=== PATIENT | female | born 1990 | race African-American/Black ===

== ENCOUNTER 2022-07-26 13:45 | Observation (INO) ==
[2022-07-26 14:05] VITALS: BMI 30.9
[2022-07-26] MEDS ORDERED: TORADOL 30 MG VIAL ONE (14:07)
[2022-07-26] MEDS ORDERED: ZOFRAN INJ 4 MG VIAL ONE (14:07)
[2022-07-26] MEDS ORDERED: NS 1,000 ML IV 1,000 ML ONE ×2 (14:08→15:24)
--- NOTE | 2022-07-26 14:08 | ED.ABDFE ---
HPI Time Seen Time Seen by Provider: 07/26/22 14:07 PCP Primary Care Physician: Dr. Castillo Complaint Doctors Chief Complaint Comments: LOW ABDOMINAL PAIN FOR 1 WEEK THAT BECAME MORE SEVERE ONE DAY AGO. VOMITIED ONE TINME YESTERDAY. HAS NOT HAD A CYCLE IN ABOUT A YEAR. Chief Complaint:: Patient states she is having lower abdominal cramping. States that pain comes and goes and has gotten worse. States she has been unable to co ntrol her bladder since yesterday. States she ate something yesterday and she vomited it back up. COVID-19 Coronavirus risk:travel/contact w/high risk person: No Has patient experienced Coronavirus symptoms: No Source History Provided: Patient Mode of arrival Mode of Arrival: Ambulatory Timing Onset of Chief Complaint: 07/25/22 PMH PMH Past Medical History: No Past Surgical History: Yes Surgical History: Other Past Surgical History Comment: Hernia Family History History of Family Medical Conditions: Yes Family Medical History: Hypertension Social History Does any household member use tobacco: No Alcohol Use: Occasionally Do you use any recreational Drugs:: No Lives Where: Home Travel Risk Coronavirus risk:travel/contact w/high risk person: No Has patient experienced Coronavirus symptoms: No Infectious screening Have you traveled outside the country in the last 6 months?: No Isolation: Standard ROS Review of Systems Constitutional: Other (LOW ABDOMINAL PAIN WITH CRAMPING ) Eyes: No Symptoms Reported ENTM: No Symptoms Reported Respiratoy: No Symptoms Reported Cardiovascular: No Symptoms Reported Gastrointestinal/Abdominal: Abdominal Pain Genitourinary: No Symptoms Reported Neurological: No Symptoms Reported Musculoskeletal: No Symptoms Reported Integumentary: No Symptoms Reported Hematologic/Lymphatic: No Symptoms Reported Endocrine: No Symptoms Reported Psychiatric: No Symptoms Reported PE Vital Signs Vitals: Temperature 98.8 F Pulse Rate 84 Respiratory Rate 20 Blood Pressure [Right Arm] 135/87 Blood Pressure 122/72 O2 Sat by Pulse Oximetry 100 General Limitations: No Limitations and Physical Limitation (INCREASED ABDOMINAL PAIN WITH CRAMPING. ) General Appearance: In Distress (MODERATE DISTRESS) Head Head Exam: Normal Inspection, Atraumatic and Normocephalic Eyes Eye exam: Normal Appearance, PERRL and EOMI ENT ENT Exam: Normal Exam and Normal Oropharynx Neck Neck Exam: Normal Inspection, Full ROM and Trachea Midline Chest Chest Inspection: Normal Inspection and Symmetric Chest Wall Rise Respiratory Respiratory Exam: Normal Lung Sounds Bilat Respiratory Exam: Bilateral: Clear to Auscultation Cardiovascular Cardiovascular Exam: Regular Rate and Normal Rhythm Abdominal Exam Abdominal Exam: Tenderness (LOWER QUADRANT, R>L) and Hyperactive Bowel Sounds Abdominal Tenderness: Suprapubic Rectal Rectal Exam: Deferred Extremeties Extremities Exam: Normal Inspection Neurologic Neurological Exam: Alert, Oriented X3 and CN II-XII Intact Skin Skin Exam: Warm, Dry and Intact MDM Differential Diagnosis Differential Diagnosis- Considerations may include:: -Threatened, PID, Urinary tract infection and Other (comments) (,TUBAL ) COURSE Treatment Treatment: THE PATIENT CONTINUED TO HAVE LOW ABDOMINAL PAIN, WAS INITIALLY GIVEN TORADOL 30MG IB AND ZOFRAN 4MG IV. THE PATIENN WAS FOUND TO HAVE A POSITIVE SERUM TEST. SHE CONTINUED TO HAVE ABDOMINAL PAIN AND WAS INITIALLY GIVEN MORPHINE 2MD IV FOR PAIN , THE PAIN EASED OFF A LITTLE AND WE ORDERDED AQUANTITATIVE HACG BUT BEFORE RESULTS WERE BCK THE PATIENT CONTINUED TO HAVE ABD PAIN AND EVENTIALLY STARTED HAVING VAGINAL BLEEDING WITH CONTRACTIONS , SHE WAS GIVEN ANOTHER 2MG OF MSO4 IV AND VAGINAL EXAM WAS DONE AND FETYS WAS NOTED AT THE VAGINAL OS, THE NURSE ,LUIS, HAD THEOTHER NURSES TO CLL DR PRADO WHO WAS ON FOR OB AND 1 SPOKE WITH HIM AT 1515 AND DESCRIBED WHAT WAS GOING ON AND HE STATED THAT THIS APPEARED TO AN IN PROGRESS FO CALL LABOR AND DELIVERY AND MOVE THE PATIENT OVER TO L AND D WHEN APPROPRIATE TO MOMITOR THE AND THE PATIENT FOR STABILITY. ROR Labs Reviewed Result Diagrams: 07/26/22 14:05 07/26/22 14:05 Laboratory: WBC 17.4 X10^3/uL (3.6-10.0) H 07/26/22 14:05 RBC 3.87 X10^6/uL (3.5-5.4) 07/26/22 14:05 Hgb 11.8 g/dL (12.0-16.0) L 07/26/22 14:05 Hct 34.8 % (36.0-47.0) L 07/26/22 14:05 MCV 90.0 fL (80.0-100.0) 07/26/22 14:05 MCH 30.5 pg (27.0-34.0) 07/26/22 14:05 MCHC 33.9 g/dL (33.0-35.0) 07/26/22 14:05 RDW 14.1 % (11.6-16.5) 07/26/22 14:05 Plt Count 236 X10^3/uL (150.0-450.0) 07/26/22 14:05 MPV 7.1 fL (7.4-11.0) L 07/26/22 14:05 Neut % (Auto) 84.8 % (42.0-75.0) H 07/26/22 14:05 Lymph % (Auto) 8.3 % (21.0-51.0) L 07/26/22 14:05 [place] % (Auto) 5.7 % (0.0-13.0) 07/26/22 14:05 Eos % (Auto) 1.0 % (0.9-2.9) 07/26/22 14:05 Baso % (Auto) 0.2 % (0.2-1.0) 07/26/22 14:05 Neut # (Auto) 14.8 x10^3/uL (2.2-4.8) H 07/26/22 14:05 Lymph # (Auto) 1.4 X10^3/uL (1.3-2.9) 07/26/22 14:05 [place] # (Auto) 1.0 x10^3/uL (0.3-0.8) H 07/26/22 14:05 Eos # (Auto) 0.2 x10^3/uL (0.0-0.2) 07/26/22 14:05 Baso # (Auto) 0.0 X10^3/uL (0.0-0.1) 07/26/22 14:05 Absolute Nucleated RBC 0.0 /100WBC 07/26/22 14:05 Sodium 138 mmol/L (136-145) 07/26/22 14:05 Corrected Sodium TNP 07/26/22 14:05 Potassium 3.5 mmol/L (3.5-5.1) 07/26/22 14:05 Chloride 104 mmol/L (98-107) 07/26/22 14:05 Carbon Dioxide 22.2 mmol/L (21-32) 07/26/22 14:05 BUN 4 mg/dL (7-18) L 07/26/22 14:05 Creatinine 0.66 mg/dL (0.55-1.02) 07/26/22 14:05 Est GFR (MDRD) Af Amer > 60 (>60) 07/26/22 14:05 Est GFR (MDRD) Non-Af > 60 (>60) 07/26/22 14:05 Glucose 85 mg/dL (65-99) 07/26/22 14:05 Calcium 8.0 mg/dL (8.5-10.1) L 07/26/22 14:05 Corrected Calcium 8.8 mg/dL (8.5-10.1) 07/26/22 14:05 Total Bilirubin 1.00 mg/dL (0.2-1.0) 07/26/22 14:05 AST 24 Units/L (15-37) 07/26/22 14:05 ALT 30 Units/L (12-78) 07/26/22 14:05 Alkaline Phosphatase 79 Units/L (46-116) 07/26/22 14:05 Total Protein 6.7 g/dL (6.4-8.2) 07/26/22 14:05 Albumin 3.0 g/dL (3.4-5.0) L 07/26/22 14:05 Globulin 3.7 g/dL (2.5-4.5) 07/26/22 14:05 Albumin/Globulin Ratio 0.8 Ratio (1.1-2.1) L 07/26/22 14:05 Amylase 38 Units/L (25-115) 07/26/22 14:05 Lipase 52 Units/L (73-393) L 07/26/22 14:05 HCG, Qual Positive >10 mIU/mL 07/26/22 14:05 Specimen Type Clean catch urine 07/26/22 13:52 Urine Color [place]od[place] (YELLOW) 07/26/22 13:52 Urine Appearance Hazy (CLEAR) 07/26/22 13:52 Urine pH 6.0 (5.0 - 8.0) 07/26/22 13:52 Ur Specific [place] 1.020 (1.000-1.030) 07/26/22 13:52 Urine Protein 2+ (NEGATIVE) 07/26/22 13:52 Urine Glucose (UA) Negative (NEGATIVE) 07/26/22 13:52 Urine Ketones 4+ (NEGATIVE) 07/26/22 13:52 Urine Blood 5+ (NEGATIVE) 07/26/22 13:52 Urine Nitrite Negative (NEGATIVE) 07/26/22 13:52 Urine Bilirubin Negative (NEGATIVE) 07/26/22 13:52 Urine Urobilinogen 2+ (NORMAL) 07/26/22 13:52 Ur Leukocyte Esterase 3+ (NEGATIVE) 07/26/22 13:52 Urine RBC 20-30 /HPF (0-3) A 07/26/22 13:52 Urine WBC 20-30 /HPF (0-5) A 07/26/22 13:52 Ur Squamous Epith Cells Few /HPF (NEGATIVE) 07/26/22 13:52 Urine Bacteria 1+ /HPF (NEGATIVE) 07/26/22 13:52 Urine Trichomonas Moderate /HPF (NEGATIVE) 07/26/22 13:52 Ur Culture Indicated? Yes/culture set up 07/26/22 13:52 Urine Opiates Screen Negative (NEG=<300) 07/26/22 13:52 Urine Methadone Screen Negative (NEG=<300) 07/26/22 13:52 Ur Barbiturates Screen Negative (NEG=<200) 07/26/22 13:52 Ur Phencyclidine Scrn Negative (NEG=<25) 07/26/22 13:52 Ur Amphetamines Screen Negative (NEG=<1000) 07/26/22 13:52 U Benzodiazepines Scrn Negative (NEG=<200) 07/26/22 13:52 Urine Cocaine Screen Negative (NEG=<300) 07/26/22 13:52 U Marijuana (THC) Screen Negative (NEG=<50) 07/26/22 13:52 Opioid Opioid Risk Tool Age (Eric box if 16-45): Yes History of Preadolescent Sexual Abuse: No Total: 1 Total Score Risk Category: Low Risk Copyright: Carlos CARO predicting aberrant behaviors Discharge Plan Discharge Plan Patient Disposition: 01 HOME, SELF-CARE Condition: Stable Prescriptions: No Action [facility] Concerns: Post Hospitalization: new medications and changes needed to prevent readmission or further decline. Pt educated and given instructions on all concerns. Plan of Treatment: Continue with present treatment and follow up plan. Pt is to keep follow up appointment as instructed and take medications as ordered. Follow ups/Referrals Follow ups/Referrals: Lucero Castillo [Primary Care Provider] - 3 days
[2022-07-26 14:13] LABS: BASOPHILS % (AUTO) 0.2 % (0.2-1.0); EOSINOPHILS # (AUTO) 0.2 x10^3/uL (0.0-0.2); HEMATOCRIT 34.8 % (36.0-47.0); HEMOGLOBIN 11.8 g/dL (12.0-16.0); LYMPHOCYTES # (AUTO) 1.4 X10^3/uL (1.3-2.9); LYMPHOCYTES % (AUTO) 8.3 % (21.0-51.0); MEAN CORPUSCULAR HEMOGLOBIN 30.5 pg (27.0-34.0); MEAN CORPUSCULAR HGB CONC 33.9 g/dL (33.0-35.0); MEAN PLATELET VOLUME 7.1 fL (7.4-11.0); MONOCYTES % (AUTO) 5.7 % (0.0-13.0); NEUTROPHILS # (AUTO) 14.8 x10^3/uL (2.2-4.8); NEUTROPHILS % (AUTO) 84.8 % (42.0-75.0); RED BLOOD COUNT 3.87 X10^6/uL (3.5-5.4); RED CELL DISTRIBUTION WIDTH 14.1 % (11.6-16.5); WHITE BLOOD COUNT 17.4 X10^3/uL (3.6-10.0)
[2022-07-26 14:13] LABS: BILIRUBIN,URINE NEGATIVE (NEGATIVE); BLOOD/HEMOGLOBIN,URINE 5+ (NEGATIVE); GLUCOSE, URINE NEGATIVE (NEGATIVE); KETONES,URINE 4+ (NEGATIVE); LEUKOCYTE ESTERASE ,URINE 3+ (NEGATIVE); NITRITES,URINE NEGATIVE (NEGATIVE); PROTEIN,URINE 2+ (NEGATIVE); UROBILINOGEN,URINE 2+ (NORMAL)
[2022-07-26] MEDS ORDERED: ZOFRAN INJ 4 MG VIAL IVP ONE (14:17)
[2022-07-26] MEDS ORDERED: NS 1,000 ML IV 1,000 ML IV ONE ×2 (14:17→15:24)
[2022-07-26] MEDS ORDERED: TORADOL 30 MG VIAL IVP ONE (14:17)
[2022-07-26 14:27] LABS: APPEARANCE,URINE HAZY (CLEAR); COLOR,URINE AMBER (YELLOW)
[2022-07-26 14:28] LABS: ALANINE AMINOTRANSFERASE 30 Units/L (12-78); ALKALINE PHOSPHATASE 79 Units/L (46-116); AMYLASE 38 Units/L (25-115); ASPARTATE AMINO TRANSFERASE 24 Units/L (15-37); BLOOD UREA NITROGEN 4 mg/dL (7-18); CARBON DIOXIDE 22.2 mmol/L (21-32); CHLORIDE 104 mmol/L (98-107); COR CA(FOR HYPOALB) 8.8 mg/dL (8.5-10.1); CREATININE 0.66 mg/dL (0.55-1.02); LIPASE 52 Units/L (73-393); SODIUM 138 mmol/L (136-145); TOTAL PROTEIN 6.7 g/dL (6.4-8.2); eGFR NON BLACK RACES > 60 (>60)
[2022-07-26 14:28] LABS: BACTERIA,URINE 1+ /HPF (NEGATIVE); RBC,URINE 20-30 /HPF (0-3); SQUAMOUS EPITHELIAL CELL,UR FEW /HPF (NEGATIVE); TRICHOMONAS,URINE MODERATE /HPF (NEGATIVE)
[2022-07-26 14:34] LABS: SERUM PREGNANCY TEST, QUAL POSITIVE >10 mIU/mL
[2022-07-26] MEDS ORDERED: MORPHINE SULFATE INJ 2 MG INJ IVP ONE ×2 (14:39→15:17)
[2022-07-26] MEDS ORDERED: MORPHINE SULFATE INJ 2 MG INJ ONE ×2 (14:40→15:17)
[2022-07-26] MEDS ORDERED: PITOCIN IVP ONE (15:50)
[2022-07-26] MEDS ORDERED: D5 1/2 NS 1,000 mL + PITOCIN 20 UNITS/L IV 20 UNITS/1,000 ML BAG IV PRN (15:55)
[2022-07-26] MEDS ORDERED: PITOCIN ONE (16:13)
[2022-07-26] MEDS ORDERED: D5 1/2 NS 1,000 mL + PITOCIN 20 UNITS/L IV 20 UNITS/1,000 ML BAG IV ONE (16:13)
[2022-07-26] MEDS: MOTRIN TAB 800 MG PO PRN (19:22)
[2022-07-26] MEDS ORDERED: MORPHINE SULFATE INJ 4 MG ONE (20:56)
[2022-07-26] MEDS: MORPHINE SULFATE INJ 4 MG IVP PRN (21:05)
[2022-07-27] MEDS: MOTRIN TAB 800 MG PO PRN (03:20)
[2022-07-27 05:47] LABS: BASOPHILS # (AUTO) 0.1 X10^3/uL (0.0-0.1); BASOPHILS % (AUTO) 0.5 % (0.2-1.0); EOSINOPHILS # (AUTO) 0.2 x10^3/uL (0.0-0.2); EOSINOPHILS % (AUTO) 2.2 % (0.9-2.9); HEMATOCRIT 26.1 % (36.0-47.0); LYMPHOCYTES # (AUTO) 2.3 X10^3/uL (1.3-2.9); LYMPHOCYTES % (AUTO) 21.7 % (21.0-51.0); MEAN CORPUSCULAR HEMOGLOBIN 31.7 pg (27.0-34.0); MEAN CORPUSCULAR HGB CONC 34.9 g/dL (33.0-35.0); MEAN CORPUSCULAR VOLUME 90.7 fL (80.0-100.0); MEAN PLATELET VOLUME 7.7 fL (7.4-11.0); MONOCYTES # (AUTO) 0.8 x10^3/uL (0.3-0.8); MONOCYTES % (AUTO) 7.7 % (0.0-13.0); NEUTROPHILS # (AUTO) 7.2 x10^3/uL (2.2-4.8); NEUTROPHILS % (AUTO) 67.9 % (42.0-75.0); RED BLOOD COUNT 2.88 X10^6/uL (3.5-5.4); RED CELL DISTRIBUTION WIDTH 14.5 % (11.6-16.5); WHITE BLOOD COUNT 10.7 X10^3/uL (3.6-10.0)
[2022-07-27 05:56] LABS: HEMOGLOBIN 9.1 g/dL (12.0-16.0)
[2022-07-27 06:18] LABS: ALANINE AMINOTRANSFERASE 19 Units/L (12-78); ALBUMIN 2.1 g/dL (3.4-5.0); ALKALINE PHOSPHATASE 57 Units/L (46-116); ASPARTATE AMINO TRANSFERASE 15 Units/L (15-37); BLOOD UREA NITROGEN 4 mg/dL (7-18); CALCIUM 6.7 mg/dL (8.5-10.1); CARBON DIOXIDE 21.4 mmol/L (21-32); CHLORIDE 108 mmol/L (98-107); COR CA(FOR HYPOALB) 8.2 mg/dL (8.5-10.1); CREATININE 0.56 mg/dL (0.55-1.02); SODIUM 139 mmol/L (136-145); TOTAL PROTEIN 5.1 g/dL (6.4-8.2); eGFR NON BLACK RACES > 60 (>60)
[2022-07-27] MEDS: MORPHINE SULFATE INJ 4 MG IVP PRN (08:39)
[2022-07-27 09:38] VITALS: BP 101/58
== END 2022-07-27 11:31 | disposition home or self-care (01) ==
LOC: MED/SURG 13:45 → ER 13:45 → MED/SURG 16:58
PROVIDERS: ADMIT Obstetrics & Gynecology Obstetrics; ATTEND Obstetrics & Gynecology Obstetrics
DX: O34.32 Maternal care for cervical incompetence, second trimester; Z3A.14 14 weeks gestation of pregnancy; O03.9 Complete or unspecified spontaneous abortion without complication

== ENCOUNTER 2022-11-27 11:29 | Observation (INO) ==
[2022-11-27] MEDS ORDERED: TORADOL 30 MG VIAL IVP ONE (11:55)
[2022-11-27] MEDS ORDERED: NS 1,000 ML IV 1,000 ML IV ONE ×2 (11:55→12:53)
--- NOTE | 2022-11-27 11:59 | ED.ABDFE ---
HPI Time Seen Time Seen by Provider: 11/27/22 11:49 PCP Primary Care Physician: EVE Hunt Doctors Chief Complaint Comments: 32 y/o female presents for evaluation. Started with lower abdominal pain 2 days ago, cramping. + worsened today. 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 + nausea, vomited 2 days ago. Pain wax/waning, located across the lower abdomen, does not radiate. Nothing makes it better, nothing makes it worse. Chief Complaint:: PAIN IN STOMACH OVER NIGHT AND BACK; INDICATES LOWER ABDOMINAL PAIN BILATERALLY AND LOWER BACK PAIN. DENIES N/V/D; C/O "SICK AND LIGHT HEADED LAST COUPLE DAYS"; DECREASED APPETITE; DENIES FOOD OR MEDICATION CHANGES Self Treatment fo Chief Complaint: MOTRIN THIS MORNING AROUND 0900 COVID-19 Coronavirus risk:travel/contact w/high risk person: No Has patient experienced Coronavirus symptoms: No Reviewed Nurses Notes Review: Yes Source History Provided: Patient Mode of arrival Mode of Arrival: Ambulatory Timing Onset of Chief Complaint: 11/26/22 PMH PMH Past Medical History: No Past Surgical History: Yes Surgical History: Other Past Surgical History Comment: HERNIA REPAIR Family History History of Family Medical Conditions: Yes Family Medical History: Hypertension Social History Does patient currently use any type of tobacco product: No Have you used tobacco products in the last 12 months: No Type of Tobacco Use: None Does any household member use tobacco: No Alcohol Use: Occasionally Do you use any recreational Drugs:: No Lives With: Family Lives Where: Home Travel Risk Coronavirus risk:travel/contact w/high risk person: No Has patient experienced Coronavirus symptoms: No Infectious screening In the last 2 months have you had wt loss of >10#?: NO Have you had fever, night sweats or hemotysis?: No Have you traveled outside the country in the last 6 months?: No Isolation: Standard ROS Review of Systems Constitutional: No Symptoms Reported Eyes: No Symptoms Reported ENTM: No Symptoms Reported Respiratoy: No Symptoms Reported Cardiovascular: No Symptoms Reported Gastrointestinal/Abdominal: See HPI Genitourinary: No Symptoms Reported Neurological: No Symptoms Reported Musculoskeletal: No Symptoms Reported Integumentary: No Symptoms Reported All Other Systems: Reviewed and Negative PE Vital Signs Vitals: Temperature 98.9 F Pulse Rate 64 Respiratory Rate 22 Blood Pressure [Right Arm] 101/58 Blood Pressure 112/73 O2 Sat by Pulse Oximetry 100 General General Appearance: Alert and In No Apparent Distress Eyes Eye exam: PERRL and EOMI ENT ENT Exam: Mucous Membranes Moist Chest Chest Inspection: Normal Inspection Respiratory Respiratory Exam: Normal Lung Sounds Bilat; negative Accessory Muscle Use or Respiratory Distress Cardiovascular Cardiovascular Exam: Regular Rate, Normal Rhythm and Normal Heart Sounds Abdominal Exam Abdominal Exam: Normal Bowel Sounds, Soft and Tenderness (RLQ > LLQ, no guarding or rebound. ) Back Back Exam: Normal Inspection; negative Tenderness, (R) CVA Tenderness or (L) CVA Tenderness Extremeties Extremities Exam: Normal Inspection and Full ROM; negative Edema Neurologic Neurological Exam: Alert, Oriented X3 and CN II-XII Intact; negative Motor Sensory Deficit Skin Skin Exam: Warm and Dry COURSE Treatment Treatment: Pt with lower abdominal cramping x 2 days, now with heavy vaginal bleeding. LMP 08/2022, h/o irregular menses. Is . W/u initiated. 1230 - + HCG ... labs otherwise acceptable. HIGHLY concerning for ectopic based on presentation. LMP around 08/30, about 8 weeks by dates. Added quantitative, US. Heads up to Dr Lord, carton forming machine tender for OB. Pt to remain NPO. 1316 - Dr Lord came and evaluated pt in US, is having a miscarriage. Will admit for observation, treat with methergine. ROR Labs Reviewed Laboratory Results Reviewed?: Yes Result Diagrams: 11/27/22 12:10 11/27/22 12:10 Laboratory: WBC 6.8 X10^3/uL (3.6-10.0) 11/27/22 12:10 RBC 3.86 X10^6/uL (3.5-5.4) 11/27/22 12:10 Hgb 11.6 g/dL (12.0-16.0) L 11/27/22 12:10 Hct 34.2 % (36.0-47.0) L 11/27/22 12:10 MCV 88.5 fL (80.0-100.0) 11/27/22 12:10 MCH 30.1 pg (27.0-34.0) 11/27/22 12:10 MCHC 34.0 g/dL (33.0-35.0) 11/27/22 12:10 RDW 14.9 % (11.6-16.5) 11/27/22 12:10 Plt Count 216 X10^3/uL (150.0-450.0) 11/27/22 12:10 MPV 7.1 fL (7.4-11.0) L 11/27/22 12:10 Neut % (Auto) 70.5 % (42.0-75.0) 11/27/22 12:10 Lymph % (Auto) 21.1 % (21.0-51.0) 11/27/22 12:10 [place] % (Auto) 6.9 % (0.0-13.0) 11/27/22 12:10 Eos % (Auto) 1.2 % (0.9-2.9) 11/27/22 12:10 Baso % (Auto) 0.3 % (0.2-1.0) 11/27/22 12:10 Neut # (Auto) 4.8 x10^3/uL (2.2-4.8) 11/27/22 12:10 Lymph # (Auto) 1.4 X10^3/uL (1.3-2.9) 11/27/22 12:10 [place] # (Auto) 0.5 x10^3/uL (0.3-0.8) 11/27/22 12:10 Eos # (Auto) 0.1 x10^3/uL (0.0-0.2) 11/27/22 12:10 Baso # (Auto) 0.0 X10^3/uL (0.0-0.1) 11/27/22 12:10 Absolute Nucleated RBC 0.0 /100WBC 11/27/22 12:10 Sodium 135 mmol/L (136-145) L 11/27/22 12:10 Corrected Sodium TNP 11/27/22 12:10 Potassium 3.7 mmol/L (3.5-5.1) 11/27/22 12:10 Chloride 101 mmol/L (98-107) 11/27/22 12:10 Carbon Dioxide 24.7 mmol/L (21-32) 11/27/22 12:10 BUN 5 mg/dL (7-18) L 11/27/22 12:10 Creatinine 0.77 mg/dL (0.55-1.02) 11/27/22 12:10 Est GFR (MDRD) Af Amer > 60 (>60) 11/27/22 12:10 Est GFR (MDRD) Non-Af > 60 (>60) 11/27/22 12:10 Glucose 96 mg/dL (65-99) 11/27/22 12:10 Calcium 7.9 mg/dL (8.5-10.1) L 11/27/22 12:10 Corrected Calcium TNP 11/27/22 12:10 Total Bilirubin 0.90 mg/dL (0.2-1.0) 11/27/22 12:10 AST 25 Units/L (15-37) 11/27/22 12:10 ALT 26 Units/L (12-78) 11/27/22 12:10 Alkaline Phosphatase 34 Units/L (46-116) L 11/27/22 12:10 Total Protein 6.9 g/dL (6.4-8.2) 11/27/22 12:10 Albumin 3.6 g/dL (3.4-5.0) 11/27/22 12:10 Globulin 3.3 g/dL (2.5-4.5) 11/27/22 12:10 Albumin/Globulin Ratio 1.1 Ratio (1.1-2.1) 11/27/22 12:10 Lipase 58 Units/L (73-393) L 11/27/22 12:10 HCG, Qual Positive >10 mIU/mL 11/27/22 12:10 HCG, Quant 38592 mIU/mL (0-6) H 11/27/22 12:10 Specimen Type Clean catch urine 11/27/22 13:45 Urine Color Red (YELLOW) 11/27/22 13:45 Urine Appearance Turbid (CLEAR) 11/27/22 13:45 Urine pH 5.0 (5.0 - 8.0) 11/27/22 13:45 Ur Specific [place] 1.015 (1.000-1.030) 11/27/22 13:45 Urine Protein 4+ (NEGATIVE) 11/27/22 13:45 Urine Glucose (UA) Negative (NEGATIVE) 11/27/22 13:45 Urine Ketones 3+ (NEGATIVE) 11/27/22 13:45 Urine Blood 5+ (NEGATIVE) 11/27/22 13:45 Urine Nitrite Negative (NEGATIVE) 11/27/22 13:45 Urine Bilirubin Negative (NEGATIVE) 11/27/22 13:45 Urine Urobilinogen 2+ (NORMAL) 11/27/22 13:45 Ur Leukocyte Esterase Negative (NEGATIVE) 11/27/22 13:45 Urine RBC Tntc /HPF (0-3) A 11/27/22 13:45 Urine WBC 0-2 /HPF (0-5) 11/27/22 13:45 Ur Squamous Epith Cells Negative /HPF (NEGATIVE) 11/27/22 13:45 Urine Bacteria Trace /HPF (NEGATIVE) 11/27/22 13:45 Ur Culture Indicated? No/not indicated 11/27/22 13:45 + HCG, + elevated quant XRAY XRAY Interpreted by: Radiologist X-ray Results: US -- 10 week , with inevitable miscarriage. Opioid Opioid Risk Tool Age (Eric box if 16-45): Yes History of Preadolescent Sexual Abuse: No Total: 1 Total Score Risk Category: Low Risk Copyright: Carlos CARO predicting aberrant behaviors Discharge Plan Diagnosis Discharge Problem: Incomplete miscarriage Discharge Plan Patient Disposition: ADMITTED INPATIENT Condition: Stable
[2022-11-27] MEDS ORDERED: NS 1,000 ML IV 1,000 ML ONE (12:02)
[2022-11-27] MEDS ORDERED: TORADOL 30 MG VIAL ONE (12:02)
[2022-11-27 12:25] LABS: BASOPHILS % (AUTO) 0.3 % (0.2-1.0); EOSINOPHILS # (AUTO) 0.1 x10^3/uL (0.0-0.2); EOSINOPHILS % (AUTO) 1.2 % (0.9-2.9); HEMATOCRIT 34.2 % (36.0-47.0); HEMOGLOBIN 11.6 g/dL (12.0-16.0); LYMPHOCYTES # (AUTO) 1.4 X10^3/uL (1.3-2.9); LYMPHOCYTES % (AUTO) 21.1 % (21.0-51.0); MEAN CORPUSCULAR HEMOGLOBIN 30.1 pg (27.0-34.0); MEAN CORPUSCULAR VOLUME 88.5 fL (80.0-100.0); MEAN PLATELET VOLUME 7.1 fL (7.4-11.0); MONOCYTES # (AUTO) 0.5 x10^3/uL (0.3-0.8); MONOCYTES % (AUTO) 6.9 % (0.0-13.0); NEUTROPHILS # (AUTO) 4.8 x10^3/uL (2.2-4.8); NEUTROPHILS % (AUTO) 70.5 % (42.0-75.0); PLATELET COUNT 216 X10^3/uL (150.0-450.0); RED BLOOD COUNT 3.86 X10^6/uL (3.5-5.4); RED CELL DISTRIBUTION WIDTH 14.9 % (11.6-16.5); WHITE BLOOD COUNT 6.8 X10^3/uL (3.6-10.0)
[2022-11-27 12:29] LABS: SERUM PREGNANCY TEST, QUAL POSITIVE >10 mIU/mL
[2022-11-27 12:34] LABS: ALANINE AMINOTRANSFERASE 26 Units/L (12-78); ALBUMIN 3.6 g/dL (3.4-5.0); ALKALINE PHOSPHATASE 34 Units/L (46-116); ASPARTATE AMINO TRANSFERASE 25 Units/L (15-37); BLOOD UREA NITROGEN 5 mg/dL (7-18); CALCIUM 7.9 mg/dL (8.5-10.1); CARBON DIOXIDE 24.7 mmol/L (21-32); CHLORIDE 101 mmol/L (98-107); CREATININE 0.77 mg/dL (0.55-1.02); GLUCOSE 96 mg/dL (65-99); LIPASE 58 Units/L (73-393); POTASSIUM 3.7 mmol/L (3.5-5.1); SODIUM 135 mmol/L (136-145); TOTAL PROTEIN 6.9 g/dL (6.4-8.2); eGFR NON BLACK RACES > 60 (>60)
[2022-11-27 14:01] LABS: BILIRUBIN,URINE NEGATIVE (NEGATIVE); BLOOD/HEMOGLOBIN,URINE 5+ (NEGATIVE); GLUCOSE, URINE NEGATIVE (NEGATIVE); KETONES,URINE 3+ (NEGATIVE); LEUKOCYTE ESTERASE ,URINE NEGATIVE (NEGATIVE); NITRITES,URINE NEGATIVE (NEGATIVE); PROTEIN,URINE 4+ (NEGATIVE); UROBILINOGEN,URINE 2+ (NORMAL)
[2022-11-27 14:03] LABS: APPEARANCE,URINE TURBID (CLEAR); COLOR,URINE RED (YELLOW)
[2022-11-27 14:16] LABS: BACTERIA,URINE TRACE /HPF (NEGATIVE); RBC,URINE TNTC /HPF (0-3); SQUAMOUS EPITHELIAL CELL,UR NEGATIVE /HPF (NEGATIVE)
--- NOTE | 2022-11-27 14:26 | US ---
HISTORY, bleeding. Last menstrual cycle 08/28/2022. Clinical age 13 weeks 0 days with an expected date of delivery on 06/04/2023.STUDYOB LESS THAN 14 WEEKSCOMPARISONNoneTECHNIQUEForty-four images made by the baseball inspector. [place] scale and color flow images of the pelvis were obtained. Two Cine clips were submitted.FINDINGSTrans abdominal: Maternal uterus is in the anteverted position. The uterus measured 10.5 cm long and about 6 cm in diameter.A single intrauterine gestational sac is present. But it is located in the endocervical canal consistent with inevitable miscarriage. A single fetus pole is identified. Cardiac motion was not seen under real-time imaging. No heart rate could be measured.- The shape of the gestational sac was elongated.- The crown-rump length measured 30.8 mm for an age of 10 weeks 0 days.- A yolk sac was not identified.- The endometrial cavity in the fundus and body was heterogenous suggesting endometrial hemorrhageBased on the measurements, the estimated gestational age is 10 weeks 0 days.- Left ovary was normal.- Right ovary was normal.- A corpus luteum cyst was not identified.- An adnexal mass was not identified.- Free fluid was not identified.IMPRESSION1. Findings consistent with an avid a ball miscarriage2. Fetus located in the endocervical canal with no measurable cardiac activityElectronically signed by: Mike Bronson (November 27, 2022 14:25:38)
[2022-11-27] MEDS ORDERED: ZOFRAN INJ 4 MG VIAL IVP PRN (14:35)
[2022-11-27 15:11] VITALS: BMI 29.0
[2022-11-27] MEDS: MORPHINE SULFATE INJ 4 MG IVP PRN ×2 (15:15→19:53)
[2022-11-27] MEDS: D5 1/2 NS 1,000 ML 1,000 ML IV SCH ×2 (15:33→23:18)
[2022-11-27] MEDS: METHERGINE PO SCH ×2 (17:41→21:20)
[2022-11-28] MEDS: MORPHINE SULFATE INJ 4 MG IVP PRN ×2 (02:10→06:04)
[2022-11-28] MEDS: D5 1/2 NS 1,000 ML 1,000 ML IV SCH (05:37)
[2022-11-28 06:16] LABS: BASOPHILS % (AUTO) 0.5 % (0.2-1.0); EOSINOPHILS # (AUTO) 0.1 x10^3/uL (0.0-0.2); EOSINOPHILS % (AUTO) 2.5 % (0.9-2.9); HEMATOCRIT 28.7 % (36.0-47.0); HEMOGLOBIN 9.8 g/dL (12.0-16.0); LYMPHOCYTES # (AUTO) 2.1 X10^3/uL (1.3-2.9); LYMPHOCYTES % (AUTO) 39.4 % (21.0-51.0); MEAN CORPUSCULAR HEMOGLOBIN 30.7 pg (27.0-34.0); MEAN CORPUSCULAR HGB CONC 34.3 g/dL (33.0-35.0); MEAN CORPUSCULAR VOLUME 89.5 fL (80.0-100.0); MEAN PLATELET VOLUME 7.5 fL (7.4-11.0); MONOCYTES # (AUTO) 0.4 x10^3/uL (0.3-0.8); MONOCYTES % (AUTO) 8.3 % (0.0-13.0); NEUTROPHILS # (AUTO) 2.6 x10^3/uL (2.2-4.8); NEUTROPHILS % (AUTO) 49.3 % (42.0-75.0); PLATELET COUNT 175 X10^3/uL (150.0-450.0); RED BLOOD COUNT 3.21 X10^6/uL (3.5-5.4); WHITE BLOOD COUNT 5.2 X10^3/uL (3.6-10.0)
[2022-11-28 06:51] LABS: ALANINE AMINOTRANSFERASE 21 Units/L (12-78); ALBUMIN 3.2 g/dL (3.4-5.0); ALKALINE PHOSPHATASE 29 Units/L (46-116); ASPARTATE AMINO TRANSFERASE 19 Units/L (15-37); BLOOD UREA NITROGEN 3 mg/dL (7-18); CALCIUM 7.3 mg/dL (8.5-10.1); CARBON DIOXIDE 24.7 mmol/L (21-32); CHLORIDE 102 mmol/L (98-107); COR CA(FOR HYPOALB) 7.9 mg/dL (8.5-10.1); CREATININE 0.67 mg/dL (0.55-1.02); GLUCOSE 99 mg/dL (65-99); POTASSIUM 3.3 mmol/L (3.5-5.1); SODIUM 136 mmol/L (136-145); TOTAL PROTEIN 6.2 g/dL (6.4-8.2); eGFR NON BLACK RACES > 60 (>60)
[2022-11-28] MEDS: METHERGINE PO SCH ×2 (08:34→12:30)
[2022-11-28 08:55] VITALS: PULSE 53
[2022-11-28] MEDS ORDERED: MOTRIN TAB 800 MG PO PRN (10:00)
[2022-11-28] MEDS ORDERED: NS 100 ML IV 100 ML with VENOFER 400 MG IV ONE ×2 (10:04)
[2022-11-28 12:23] VITALS: BP 108/62; TEMP 98.2; O2SAT 100
== END 2022-11-28 13:30 | disposition home or self-care (01) ==
LOC: MED/SURG 11:29 → ER 11:29 → MED/SURG 14:24
PROVIDERS: ADMIT Obstetrics & Gynecology Obstetrics; ATTEND Obstetrics & Gynecology Obstetrics
DX: O03.4 Incomplete spontaneous abortion without complication

== ENCOUNTER 2025-01-03 19:37 | Inpatient (IN) ==
--- NOTE | 2025-01-03 20:57 | ED.ABDFE ---
HPI Time Seen Time Seen by Provider: 01/03/25 20:56 PCP Primary Care Physician: CHER Complaint Chief Complaint:: Patient brought in er via WC with complaints of abdominal pain, N/V, and diarrhea since yesterday. Pt states she has a HX of pancreatitis with normal scans. pt states she is being followed by Dr. Oliver. COVID-19 Coronavirus risk:travel/contact w/high risk person: No Has patient experienced Coronavirus symptoms: No Source History Provided: Patient Mode of arrival Mode of Arrival: Ambulatory Timing Onset of Chief Complaint: 01/02/25 PMH PMH Past Medical History: Yes Past Medical History: GERD, Hypertension and PUD Past Surgical History: Yes Surgical History: Other Past Surgical History Comment: Umbilical Hernia repair Family History History of Family Medical Conditions: Yes Family Medical History: Diabetes Mellitus and Hypertension Social History Does patient currently use any type of tobacco product: No Have you used tobacco products in the last 12 months: No Type of Tobacco Use: None Does any household member use tobacco: No Alcohol Use: None Do you use any recreational Drugs:: No Lives With: Family Lives Where: Home Travel Risk Coronavirus risk:travel/contact w/high risk person: No Has patient experienced Coronavirus symptoms: No Infectious screening Have you traveled outside the country in the last 6 months?: No Isolation: Standard PE Vital Signs Vitals: Vital Signs Temperature 98.1 F Pulse Rate 85 Respiratory Rate 18 Respiratory Rate 18 Respiratory Rate 18 Respiratory Rate 18 Blood Pressure 135/93 O2 Sat by Pulse Oximetry 98 ROR Labs Reviewed 01/07/25 05:45 01/07/25 05:45 Laboratory: WBC 10.1 X10^3/uL (3.6-10.0) H 01/03/25 21: RBC 4.01 X10^6/uL (3.5-5.4) 01/03/25 21: Hgb 14.2 g/dL (12.0-16.0) 01/03/25 21: Hct 41.7 % (36.0-47.0) 01/03/25 21: MCV 104.1 fL (80.0-100.0) H 01/03/25 21: MCH 35.5 pg (27.0-34.0) H 01/03/25 21: MCHC 34.1 g/dL (33.0-35.0) 01/03/25: RDW 15.9 % (11.6-16.5) 01/03/25: Plt Count 237 X10^3/uL (150.0-450.0) 01/03/25: MPV 7.5 fL (7.4-11.0) 01/03/25: Neut % (Auto) 75.9 % (42.0-75.0) H 01/03/25: Lymph % (Auto) 13.2 % (21.0-51.0) L 01/03/25: [place] % (Auto) 10.5 % (0.0-13.0) 01/03/25: Eos % (Auto) 0.1 % (0.9-2.9) L 01/03/25: Baso % (Auto) 0.3 % (0.2-1.0) 01/03/25: Neut # (Auto) 7.7 x10^3/uL (2.2-4.8) H 01/03/25: Lymph # (Auto) 1.3 X10^3/uL (1.3-2.9) 01/03/25: [place] # (Auto) 1.1 x10^3/uL (0.3-0.8) H 01/03/25: Eos # (Auto) 0.0 x10^3/uL (0.0-0.2) 01/03/25: Baso # (Auto) 0.0 X10^3/uL (0.0-0.1) 01/03/25: Absolute Nucleated RBC 0.1 /100WBC 01/03/25: Sodium 141 mmol/L (136-145) 01/03/25: Corrected Sodium TNP 01/03/25: Potassium 3.1 mmol/L (3.5-5.1) L 01/03/25: Chloride 103 mmol/L (98-107) 01/03/25: Carbon Dioxide 25.6 mmol/L (21-32) 01/03/25: BUN 5 mg/dL (7-18) L 01/03/25 21: Creatinine 0.79 mg/dL (0.55-1.02) 01/03/25 21:25 Est GFR (MDRD) Af Amer > 60 (>60) 01/03/25: Est GFR (MDRD) Non-Af > 60 (>60) 01/03/25 21: Glucose 109 mg/dL (65-99) H 01/03/25 21: Calcium 8.3 mg/dL (8.5-10.1) L 01/03/25: Corrected Calcium TNP 01/03/25: Total Bilirubin 1.30 mg/dL (0.2-1.0) H 01/03/25: AST 84 Units/L (15-37) H 01/03/25: ALT 76 Units/L (12-78) 01/03/25: Alkaline Phosphatase 88 Units/L (46-116) 01/03/25: Total Protein 8.8 g/dL (6.4-8.2) H 01/03/25: Albumin 4.1 g/dL (3.4-5.0) 01/03/25: Globulin 4.7 g/dL (2.5-4.5) H 01/03/25: Albumin/Globulin Ratio 0.9 Ratio (1.1-2.1) L 01/03/25: Amylase 42 Units/L (25-115) 01/03/25 21: Lipase 44 Units/L (16-77) 01/03/25 21:25 Specimen Type Clean catch urine 01/03/25 20:52 Urine Color Dark yellow (YELLOW) 01/03/25 20:52 Urine Appearance Clear (CLEAR) 01/03/25 20:52 Urine pH 6.0 (5.0 - 8.0) 01/03/25 20:52 Ur Specific [place] 1.020 (1.000-1.030) 01/03/25 20:52 Urine Protein 2+ (NEGATIVE) 01/03/25 20:52 Urine Glucose (UA) Negative (NEGATIVE) 01/03/25 20:52 Urine Ketones 1+ (NEGATIVE) 01/03/25 20:52 Urine Blood 1+ (NEGATIVE) 01/03/25 20:52 Urine Nitrite Negative (NEGATIVE) 01/03/25 20:52 Urine Bilirubin Negative (NEGATIVE) 01/03/25 20:52 Urine Urobilinogen Normal (NORMAL) 01/03/25 20:52 Ur Leukocyte Esterase Negative (NEGATIVE) 01/03/25 20:52 Urine RBC 0-2 /HPF (0-3) 01/03/25 20:52 Urine WBC 0-2 /HPF (0-5) 01/03/25 20:52 Ur Squamous Epith Cells Moderate /HPF (NEGATIVE) 01/03/25 20:52 Urine Bacteria Trace /HPF (NEGATIVE) 01/03/25 20:52 Urine Mucus Many /HPF (NEGATIVE) 01/03/25 20:52 Ur Culture Indicated? No/not indicated 01/03/25 20:52 Opioid Opioid Risk Tool Age (Eric box if 16-45): Yes History of Preadolescent Sexual Abuse: No Total: 1 Total Score Risk Category: Low Risk Copyright: Carlos CARO predicting aberrant behaviors Discharge Plan Discharge Plan Patient Disposition: 09 ADMITTED INPATIENT Condition: Stable
[2025-01-03 21:03] LABS: BILIRUBIN,URINE NEGATIVE (NEGATIVE); BLOOD/HEMOGLOBIN,URINE 1+ (NEGATIVE); GLUCOSE, URINE NEGATIVE (NEGATIVE); KETONES,URINE 1+ (NEGATIVE); LEUKOCYTE ESTERASE ,URINE NEGATIVE (NEGATIVE); NITRITES,URINE NEGATIVE (NEGATIVE); PROTEIN,URINE 2+ (NEGATIVE); UROBILINOGEN,URINE NORMAL (NORMAL)
[2025-01-03 21:11] LABS: APPEARANCE,URINE CLEAR (CLEAR); COLOR,URINE DARK YELLOW (YELLOW)
[2025-01-03 21:12] LABS: BACTERIA,URINE TRACE /HPF (NEGATIVE); RBC,URINE 0-2 /HPF (0-3); SQUAMOUS EPITHELIAL CELL,UR MODERATE /HPF (NEGATIVE)
[2025-01-03] MEDS: DEMEROL INJ IM ONE ×2 (21:21→21:41)
[2025-01-03] MEDS ORDERED: DEMEROL INJ ONE (21:24)
[2025-01-03] MEDS: ZOFRAN INJ 4 MG VIAL IM ONE (21:33)
[2025-01-03 21:36] LABS: HEMATOCRIT 41.7 % (36.0-47.0); HEMOGLOBIN 14.2 g/dL (12.0-16.0); MEAN CORPUSCULAR HEMOGLOBIN 35.5 pg (27.0-34.0); MEAN CORPUSCULAR HGB CONC 34.1 g/dL (33.0-35.0)
[2025-01-03 21:42] LABS: BASOPHILS % (AUTO) 0.3 % (0.2-1.0); EOSINOPHILS % (AUTO) 0.1 % (0.9-2.9); LYMPHOCYTES # (AUTO) 1.3 X10^3/uL (1.3-2.9); LYMPHOCYTES % (AUTO) 13.2 % (21.0-51.0); MEAN CORPUSCULAR VOLUME 104.1 fL (80.0-100.0); MEAN PLATELET VOLUME 7.5 fL (7.4-11.0); MONOCYTES # (AUTO) 1.1 x10^3/uL (0.3-0.8); MONOCYTES % (AUTO) 10.5 % (0.0-13.0); NEUTROPHILS # (AUTO) 7.7 x10^3/uL (2.2-4.8); NEUTROPHILS % (AUTO) 75.9 % (42.0-75.0); PLATELET COUNT 237 X10^3/uL (150.0-450.0); RED BLOOD COUNT 4.01 X10^6/uL (3.5-5.4); RED CELL DISTRIBUTION WIDTH 15.9 % (11.6-16.5); WHITE BLOOD COUNT 10.1 X10^3/uL (3.6-10.0)
[2025-01-03 21:46] LABS: ALANINE AMINOTRANSFERASE 76 Units/L (12-78); ALBUMIN 4.1 g/dL (3.4-5.0); ALKALINE PHOSPHATASE 88 Units/L (46-116); AMYLASE 42 Units/L (25-115); ASPARTATE AMINO TRANSFERASE 84 Units/L (15-37); BLOOD UREA NITROGEN 5 mg/dL (7-18); CALCIUM 8.3 mg/dL (8.5-10.1); CARBON DIOXIDE 25.6 mmol/L (21-32); CHLORIDE 103 mmol/L (98-107); CREATININE 0.79 mg/dL (0.55-1.02); GLUCOSE 109 mg/dL (65-99); LIPASE 44 Units/L (16-77); POTASSIUM 3.1 mmol/L (3.5-5.1); SODIUM 141 mmol/L (136-145); TOTAL PROTEIN 8.8 g/dL (6.4-8.2); eGFR NON BLACK RACES > 60 (>60)
--- NOTE | 2025-01-03 22:11 | CT ---
EXAM: CT ABDOMEN AND PELVIS WITHOUT INTRAVENOUS CONTRAST HISTORY: Pain. Nausea. Vomiting. Diarrhea. History of pancreatitis. TECHNIQUE: Spiral axial CT images are obtained through the abdomen and pelvis without the administration of intravenous contrast. Additional coronal and sagittal reformatted images are reconstructed. COMPARISON: None available. FINDINGS: PANCREAS: There is evidence for acute pancreatitis marked by pancreatic enlargement and peripancreatic streaky inflammatory change. No evidence for pancreatic pseudocyst formation is seen. BILIARY SYSTEM: There is thickened appearance of the gallbladder wall with gallbladder dilatation/elongation and pericholecystic stranding suspicious for acute cholecystitis in the appropriate clinical setting. Axial image 25-52; coronal image 13-26. Consider follow-up evaluation with HIDA scan to confirm cystic duct obstruction and acute cholecystitis as clinically warranted. GASTROINTESTINAL TRACT: There is no evidence for bowel herniation, bowel obstruction, colitis or diverticulitis. A normal-appearing appendix is seen. GENITOURINARY SYSTEM: The kidneys are unremarkable. There is no ureteral calculus or stigmata of obstructive uropathy. The urinary bladder is grossly unremarkable for a non-dedicated exam. REPRODUCTIVE SYSTEM: The uterus and adnexa appear grossly unremarkable for a CT scan. Consider follow-up dedicated imaging as clinically warranted. CT ABDOMEN: Elongation of the right lobe of the liver (up to 20.5 cm CC) in keeping with hepatomegaly versus Toño's lobe (anatomical variant). The spleen, adrenal glands, gallbladder, aorta, and inferior vena cava are within normal limits for a noncontrast CT scan. There is no intra-abdominal or ret roperitoneal lymphadenopathy, free fluid, or free air seen. No abdominal herniation is noted. CT PELVIS: No pelvic sidewall or inguinal lymphadenopathy is seen. No inguinal herniation is noted. No free fluid or free air is seen. BONES AND JOINTS: The visualized bony structures are within normal limits. LUNG BASES: The lung bases are clear. IMPRESSION: 1. Evidence for acute pancreatitis marked by pancreatic enlargement and peripancreatic streaky inflammatory change. 2. Thickened appearance of the gallbladder wall with gallbladder dilatation/elongation and pericholecystic stranding suspicious for acute cholecystitis in the appropriate clinical setting. Axial image 25-52; coronal image 13-26. Consider follow-up evaluation with HIDA scan to confirm cystic duct obstruction and acute cholecystitis as clinically warranted. 3. No evidence for ureteral stones or obstructive uropathy. 4. No evidence for acute appendicitis, bowel herniation/obstruction, colitis or diverticulitis seen. 5. Elongation of the right lobe of the liver (up to 20.5 cm CC) in keeping with hepatomegaly versus Toño's lobe (anatomical variant). 6. No free fluid, free air, mass lesions, or lymphadenopathy seen. THIS IS AN ELECTRONICALLY VERIFIED FINAL REPORT 01/03/2025 10:08 PM - Electronically signed by Donald Cabrera MD
[2025-01-03] MEDS: K-DUR TAB 20 MEQ PO ONE (22:43)
[2025-01-03] MEDS ORDERED: NS 250 ML IV 25 ML IV PRN (23:27)
[2025-01-03] MEDS: ZOSYN VIAL 3.375 GRAMS 3.375 G in NS 100 ML IV 100 ML IV ONE (23:34)
[2025-01-03] MEDS: ZOFRAN INJ 4 MG VIAL IVP ONE (23:43)
[2025-01-03] MEDS: DILAUDID INJ IVP ONE (23:43)
[2025-01-04] MEDS: MORPHINE SULFATE INJ 2 MG INJ IVP PRN ×2 (03:16→08:36)
[2025-01-04] MEDS: ZOFRAN INJ 4 MG VIAL IVP PRN (03:43)
[2025-01-04] MEDS: ZOSYN VIAL 3.375 GRAMS 3.375 G in NS 100 ML IV 100 ML IV SCH (05:41)
[2025-01-04 05:54] LABS: BASOPHILS % (AUTO) 0.2 % (0.2-1.0); EOSINOPHILS % (AUTO) 0.5 % (0.9-2.9); HEMATOCRIT 39.2 % (36.0-47.0); HEMOGLOBIN 13.6 g/dL (12.0-16.0); LYMPHOCYTES # (AUTO) 1.7 X10^3/uL (1.3-2.9); LYMPHOCYTES % (AUTO) 19.7 % (21.0-51.0); MEAN CORPUSCULAR HEMOGLOBIN 36.1 pg (27.0-34.0); MEAN CORPUSCULAR HGB CONC 34.8 g/dL (33.0-35.0); MEAN CORPUSCULAR VOLUME 103.8 fL (80.0-100.0); MEAN PLATELET VOLUME 7.5 fL (7.4-11.0); MONOCYTES # (AUTO) 0.8 x10^3/uL (0.3-0.8); NEUTROPHILS # (AUTO) 5.9 x10^3/uL (2.2-4.8); NEUTROPHILS % (AUTO) 69.6 % (42.0-75.0); PLATELET COUNT 228 X10^3/uL (150.0-450.0); RED BLOOD COUNT 3.78 X10^6/uL (3.5-5.4); RED CELL DISTRIBUTION WIDTH 15.9 % (11.6-16.5); WHITE BLOOD COUNT 8.5 X10^3/uL (3.6-10.0)
[2025-01-04 06:11] LABS: ALANINE AMINOTRANSFERASE 65 Units/L (12-78); ALKALINE PHOSPHATASE 78 Units/L (46-116); ASPARTATE AMINO TRANSFERASE 56 Units/L (15-37); BLOOD UREA NITROGEN 6 mg/dL (7-18); CALCIUM 8.4 mg/dL (8.5-10.1); CARBON DIOXIDE 27.5 mmol/L (21-32); CHLORIDE 105 mmol/L (98-107); CREATININE 0.83 mg/dL (0.55-1.02); GLUCOSE 102 mg/dL (65-99); POTASSIUM 3.4 mmol/L (3.5-5.1); SODIUM 143 mmol/L (136-145); TOTAL PROTEIN 8.4 g/dL (6.4-8.2); eGFR NON BLACK RACES > 60 (>60)
[2025-01-04] MEDS ORDERED: CONSULT PHARMACY - POTASSIUM & MAGNESIUM XX SCH ×2 (08:00→09:00)
--- NOTE | 2025-01-04 08:39 | US ---
EXAM: GALL BLADDER HISTORY: PANCREATITIS, CHOLECYSTITIS; COMPARISON: 01/03/2025 TECHNIQUE: Multiple hudson scale and color flow Doppler images of the right upper quadrant were obtained. FINDINGS: The liver is normal in size and normal in echotexture. No focal identifiable hepatic mass or intrahepatic biliary ductal dilatation. No stones or sludge in the gallbladder. No gallbladder wall thickening or pericholecystic fluid. The sonographic Ortiz's sign is reported as negative by the membership sales advisor. The common bile duct is unremarkable measuring 0.2 cm. Limited visualized portions of the pancreas and IVC are unremarkable. The right kidney appears normal in size measuring up to 10.0 cm. No stones or hydronephrosis. IMPRESSION: Unremarkable right upper quadrant ultrasound. No evidence of cholelithiasis or acute cholecystitis. THIS IS AN ELECTRONICALLY VERIFIED FINAL REPORT 01/04/2025 8:25 AM - Electronically signed by Baudilio Yousif MD
[2025-01-04] MEDS: TORADOL 30 MG VIAL IVP PRN (10:19)
[2025-01-04] MEDS: D5 1/2 NS 1,000 ML 1,000 ML with MAGNESIUM SULFATE 50% INJ VIAL 1 G IV SCH (10:57)
[2025-01-04] MEDS: K-DUR TAB 20 MEQ PO NR (10:59)
[2025-01-05 06:14] LABS: BASOPHILS % (AUTO) 0.4 % (0.2-1.0); EOSINOPHILS # (AUTO) 0.2 x10^3/uL (0.0-0.2); EOSINOPHILS % (AUTO) 3.3 % (0.9-2.9); HEMATOCRIT 38.6 % (36.0-47.0); HEMOGLOBIN 13.2 g/dL (12.0-16.0); LYMPHOCYTES # (AUTO) 1.8 X10^3/uL (1.3-2.9); LYMPHOCYTES % (AUTO) 27.4 % (21.0-51.0); MEAN CORPUSCULAR HEMOGLOBIN 35.7 pg (27.0-34.0); MEAN CORPUSCULAR HGB CONC 34.1 g/dL (33.0-35.0); MEAN CORPUSCULAR VOLUME 104.7 fL (80.0-100.0); MONOCYTES # (AUTO) 0.5 x10^3/uL (0.3-0.8); MONOCYTES % (AUTO) 7.7 % (0.0-13.0); NEUTROPHILS % (AUTO) 61.2 % (42.0-75.0); PLATELET COUNT 213 X10^3/uL (150.0-450.0); RED BLOOD COUNT 3.69 X10^6/uL (3.5-5.4); RED CELL DISTRIBUTION WIDTH 15.4 % (11.6-16.5); WHITE BLOOD COUNT 6.6 X10^3/uL (3.6-10.0)
[2025-01-05 06:31] LABS: ALANINE AMINOTRANSFERASE 45 Units/L (12-78); ALBUMIN 3.5 g/dL (3.4-5.0); ALKALINE PHOSPHATASE 67 Units/L (46-116); ASPARTATE AMINO TRANSFERASE 29 Units/L (15-37); BLOOD UREA NITROGEN 6 mg/dL (7-18); CALCIUM 8.6 mg/dL (8.5-10.1); CARBON DIOXIDE 27.5 mmol/L (21-32); CHLORIDE 105 mmol/L (98-107); COR NA(FOR HYPERGLY) 142 mmol/L (136-145); CREATININE 0.73 mg/dL (0.55-1.02); GLUCOSE 120 mg/dL (65-99); MAGNESIUM 2.7 mg/dL (2.0-2.9); POTASSIUM 3.4 mmol/L (3.5-5.1); SODIUM 142 mmol/L (136-145); TOTAL PROTEIN 7.8 g/dL (6.4-8.2); eGFR NON BLACK RACES > 60 (>60)
[2025-01-05] MEDS: NS 250 ML IV 25 ML IV PRN (07:06)
[2025-01-05] MEDS: K-DUR TAB 20 MEQ PO SCH (08:55)
[2025-01-05] MEDS: D5 1/2 NS 1,000 ML 1,000 ML IV SCH (08:55)
--- NOTE | 2025-01-05 15:58 | DR.PROGNOT ---
HOSPITAL PROGRESS NOTE Progress Note for Day of: Progress Note Date: 01/05/25 Chief Complaint Chief Complaint: still c/o upper abdominal pain , nausea and vomiting . feeling better than yesterday . WBC 6.6, K 3.4, Glucose 120, LFT normal , GB us normal but CT is consistent with pancreatitis . Past Medical Family Social History Past Med/Fam/Surg Hx: No changes since H&P Allergies: Allergies latex Allergy (Verified 08/19/24 15:39) Review Of Systems ROS: No change since H&P Vital Signs Vital Signs: Vital Signs Temperature 97.8 F Temperature 97.2 F Pulse Rate [Brachial] 53 Pulse Rate [Brachial] 53 Respiratory Rate 17 Respiratory Rate 17 Respiratory Rate 17 Respiratory Rate 19 Respiratory Rate 19 Respiratory Rate 19 Respiratory Rate 18 Respiratory Rate 18 Blood Pressure [Right Arm] 125/77 Blood Pressure [Right Arm] 118/75 O2 Sat by Pulse Oximetry 98 O2 Sat by Pulse Oximetry 100 Physical Exam Oriented: Normal Eyes: Normal Ear: Normal Nose: Normal Throat: Normal Cardiovascular: Normal Speech Pattern: Clear and Appropriate Laboratory and Diagnostics 01/05/25 05:08 01/05/25 05:08 Labs: Laboratory WBC 6.6 X10^3/uL (3.6-10.0) 01/05/25 05:08 RBC 3.69 X10^6/uL (3.5-5.4) 01/05/25 05:08 Hgb 13.2 g/dL (12.0-16.0) 01/05/25 05:08 Hct 38.6 % (36.0-47.0) 01/05/25 05:08 MCV 104.7 fL (80.0-100.0) H 01/05/25 05:08 MCH 35.7 pg (27.0-34.0) H 01/05/25 05:08 MCHC 34.1 g/dL (33.0-35.0) 01/05/25 05:08 RDW 15.4 % (11.6-16.5) 01/05/25 05:08 Plt Count 213 X10^3/uL (150.0-450.0) 01/05/25 05:08 MPV 8.0 fL (7.4-11.0) 01/05/25 05:08 Neut % (Auto) 61.2 % (42.0-75.0) 01/05/25 05:08 Lymph % (Auto) 27.4 % (21.0-51.0) 01/05/25 05:08 [place] % (Auto) 7.7 % (0.0-13.0) 01/05/25 05:08 Eos % (Auto) 3.3 % (0.9-2.9) H 01/05/25 05:08 Baso % (Auto) 0.4 % (0.2-1.0) 01/05/25 05:08 Neut # (Auto) 4.0 x10^3/uL (2.2-4.8) 01/05/25 05:08 Lymph # (Auto) 1.8 X10^3/uL (1.3-2.9) 01/05/25 05:08 [place] # (Auto) 0.5 x10^3/uL (0.3-0.8) 01/05/25 05:08 Eos # (Auto) 0.2 x10^3/uL (0.0-0.2) 01/05/25 05:08 Baso # (Auto) 0.0 X10^3/uL (0.0-0.1) 01/05/25 05:08 Absolute Nucleated RBC 0.1 /100WBC 01/05/25 05:08 Sodium 142 mmol/L (136-145) 01/05/25 05:08 Corrected Sodium 142 mmol/L (136-145) 01/05/25 05:08 Potassium 3.4 mmol/L (3.5-5.1) L 01/05/25 05:08 Chloride 105 mmol/L (98-107) 01/05/25 05:08 Carbon Dioxide 27.5 mmol/L (21-32) 01/05/25 05:08 BUN 6 mg/dL (7-18) L 01/05/25 05:08 Creatinine 0.73 mg/dL (0.55-1.02) 01/05/25 05:08 Est GFR (MDRD) Af Amer > 60 (>60) 01/05/25 05:08 Est GFR (MDRD) Non-Af > 60 (>60) 01/05/25 05:08 Glucose 120 mg/dL (65-99) H 01/05/25 05:08 Calcium 8.6 mg/dL (8.5-10.1) 01/05/25 05:08 Corrected Calcium TNP 01/05/25 05:08 Magnesium 2.7 mg/dL (2.0-2.9) 01/05/25 05:08 Total Bilirubin 0.90 mg/dL (0.2-1.0) 01/05/25 05:08 AST 29 Units/L (15-37) 01/05/25 05:08 ALT 45 Units/L (12-78) 01/05/25 05:08 Alkaline Phosphatase 67 Units/L (46-116) 01/05/25 05:08 Total Protein 7.8 g/dL (6.4-8.2) 01/05/25 05:08 Albumin 3.5 g/dL (3.4-5.0) 01/05/25 05:08 Globulin 4.3 g/dL (2.5-4.5) 01/05/25 05:08 Albumin/Globulin Ratio 0.8 Ratio (1.1-2.1) L 01/05/25 05:08 Amylase 42 Units/L (25-115) 01/03/25 21:25 Lipase 44 Units/L (16-77) 01/03/25 21:25 Specimen Type Clean catch urine 01/03/25 20:52 Urine Color Dark yellow (YELLOW) 01/03/25 20:52 Urine Appearance Clear (CLEAR) 01/03/25 20:52 Urine pH 6.0 (5.0 - 8.0) 01/03/25 20:52 Ur Specific [place] 1.020 (1.000-1.030) 01/03/25 20:52 Urine Protein 2+ (NEGATIVE) 01/03/25 20:52 Urine Glucose (UA) Negative (NEGATIVE) 01/03/25 20:52 Urine Ketones 1+ (NEGATIVE) 01/03/25 20:52 Urine Blood 1+ (NEGATIVE) 01/03/25 20:52 Urine Nitrite Negative (NEGATIVE) 01/03/25 20:52 Urine Bilirubin Negative (NEGATIVE) 01/03/25 20:52 Urine Urobilinogen Normal (NORMAL) 01/03/25 20:52 Ur Leukocyte Esterase Negative (NEGATIVE) 01/03/25 20:52 Urine RBC 0-2 /HPF (0-3) 01/03/25 20:52 Urine WBC 0-2 /HPF (0-5) 01/03/25 20:52 Ur Squamous Epith Cells Moderate /HPF (NEGATIVE) 01/03/25 20:52 Urine Bacteria Trace /HPF (NEGATIVE) 01/03/25 20:52 Urine Mucus Many /HPF (NEGATIVE) 01/03/25 20:52 Ur Culture Indicated? No/not indicated 01/03/25 20:52 Assessment and Plan 1: acute pancreatitis . hypokalemia.. 2: same plan
[2025-01-05] MEDS: MAALOX or MYLANTA PO PRN (17:27)
[2025-01-06 06:24] LABS: BASOPHILS % (AUTO) 0.7 % (0.2-1.0); EOSINOPHILS # (AUTO) 0.3 x10^3/uL (0.0-0.2); EOSINOPHILS % (AUTO) 4.7 % (0.9-2.9); HEMATOCRIT 39.8 % (36.0-47.0); HEMOGLOBIN 13.5 g/dL (12.0-16.0); LYMPHOCYTES # (AUTO) 1.6 X10^3/uL (1.3-2.9); LYMPHOCYTES % (AUTO) 24.9 % (21.0-51.0); MEAN CORPUSCULAR HEMOGLOBIN 35.7 pg (27.0-34.0); MEAN CORPUSCULAR HGB CONC 33.9 g/dL (33.0-35.0); MEAN CORPUSCULAR VOLUME 105.5 fL (80.0-100.0); MEAN PLATELET VOLUME 8.2 fL (7.4-11.0); MONOCYTES # (AUTO) 0.5 x10^3/uL (0.3-0.8); MONOCYTES % (AUTO) 8.4 % (0.0-13.0); NEUTROPHILS # (AUTO) 3.8 x10^3/uL (2.2-4.8); NEUTROPHILS % (AUTO) 61.3 % (42.0-75.0); PLATELET COUNT 215 X10^3/uL (150.0-450.0); RED BLOOD COUNT 3.78 X10^6/uL (3.5-5.4); RED CELL DISTRIBUTION WIDTH 15.5 % (11.6-16.5); WHITE BLOOD COUNT 6.3 X10^3/uL (3.6-10.0)
[2025-01-06 06:43] LABS: ALANINE AMINOTRANSFERASE 39 Units/L (12-78); ALBUMIN 3.4 g/dL (3.4-5.0); ALKALINE PHOSPHATASE 61 Units/L (46-116); ASPARTATE AMINO TRANSFERASE 26 Units/L (15-37); BLOOD UREA NITROGEN 4 mg/dL (7-18); CALCIUM 8.4 mg/dL (8.5-10.1); CHLORIDE 106 mmol/L (98-107); COR NA(FOR HYPERGLY) 142 mmol/L (136-145); CREATININE 0.78 mg/dL (0.55-1.02); GLUCOSE 114 mg/dL (65-99); POTASSIUM 3.5 mmol/L (3.5-5.1); SODIUM 142 mmol/L (136-145); TOTAL PROTEIN 7.9 g/dL (6.4-8.2); eGFR NON BLACK RACES > 60 (>60)
[2025-01-06 06:49] LABS: PLATELET MORPHOLOGY COMMENT NORMAL (NORMAL)
[2025-01-06] MEDS ORDERED: CONSULT PHARMACY - POTASSIUM & MAGNESIUM XX SCH (08:00)
[2025-01-06] MEDS: K-DUR TAB 20 MEQ PO SCH (08:06)
--- NOTE | 2025-01-06 08:44 | DR.PROGNOT ---
HOSPITAL PROGRESS NOTE Progress Note for Day of: Progress Note Date: 01/06/25 Chief Complaint Chief Complaint: still c/o upper abdominal pain , nausea no vomiting feeling better than yesterday . WBC 6.3, K 3.4, Glucose 120, LFT normal , bilirubin ,normal, GB us normal but CT is consistent with pancreatitis . Tolerating liquid diet. Past Medical Family Social History Past Med/Fam/Surg Hx: No changes since H&P Allergies: Allergies latex Allergy (Verified 08/19/24 15:39) Review Of Systems ROS: No change since H&P Vital Signs Vital Signs: Vital Signs Temperature 98.7 F Temperature 98 F Pulse Rate [Brachial] 51 Pulse Rate [Brachial] 57 Respiratory Rate 18 Respiratory Rate 18 Respiratory Rate 18 Respiratory Rate 18 Respiratory Rate 18 Blood Pressure [Right Arm] 139/86 Blood Pressure [Right Arm] 123/71 O2 Sat by Pulse Oximetry 100 O2 Sat by Pulse Oximetry 99 Physical Exam Oriented: Normal Eyes: Normal Ear: Normal Nose: Normal Throat: Normal Cardiovascular: Normal GI:Auscultation: Decreased GI: Tenderness: RUQ, LUQ and Epigastric Speech Pattern: Clear and Appropriate Laboratory and Diagnostics 01/06/25 05:11 01/06/25 05:11 Labs: Laboratory WBC 6.3 X10^3/uL (3.6-10.0) 01/06/25 05:11 RBC 3.78 X10^6/uL (3.5-5.4) 01/06/25 05:11 Hgb 13.5 g/dL (12.0-16.0) 01/06/25 05:11 Hct 39.8 % (36.0-47.0) 01/06/25 05:11 MCV 105.5 fL (80.0-100.0) H 01/06/25 05:11 MCH 35.7 pg (27.0-34.0) H 01/06/25 05:11 MCHC 33.9 g/dL (33.0-35.0) 01/06/25 05:11 RDW 15.5 % (11.6-16.5) 01/06/25 05:11 Plt Count 215 X10^3/uL (150.0-450.0) 01/06/25 05:11 Plt Count Comment Adequate (ADEQUATE) 01/06/25 05:11 MPV 8.2 fL (7.4-11.0) 01/06/25 05:11 Neut % (Auto) 61.3 % (42.0-75.0) 01/06/25 05:11 Lymph % (Auto) 24.9 % (21.0-51.0) 01/06/25 05:11 [place] % (Auto) 8.4 % (0.0-13.0) 01/06/25 05:11 Eos % (Auto) 4.7 % (0.9-2.9) H 01/06/25 05:11 Baso % (Auto) 0.7 % (0.2-1.0) 01/06/25 05:11 Neut # (Auto) 3.8 x10^3/uL (2.2-4.8) 01/06/25 05:11 Lymph # (Auto) 1.6 X10^3/uL (1.3-2.9) 01/06/25 05:11 [place] # (Auto) 0.5 x10^3/uL (0.3-0.8) 01/06/25 05:11 Eos # (Auto) 0.3 x10^3/uL (0.0-0.2) H 01/06/25 05:11 Baso # (Auto) 0.0 X10^3/uL (0.0-0.1) 01/06/25 05:11 Absolute Nucleated RBC 0.2 /100WBC 01/06/25 05:11 Plt Morphology Comment Normal (NORMAL) 01/06/25 05:11 RBC Morphology Abnormal (NORMAL) A 01/06/25 05:11 Macrocytosis 1+ A 01/06/25 05:11 Sodium 142 mmol/L (136-145) 01/06/25 05:11 Corrected Sodium 142 mmol/L (136-145) 01/06/25 05:11 Potassium 3.5 mmol/L (3.5-5.1) 01/06/25 05:11 Chloride 106 mmol/L (98-107) 01/06/25 05:11 Carbon Dioxide 24.0 mmol/L (21-32) 01/06/25 05:11 BUN 4 mg/dL (7-18) L 01/06/25 05:11 Creatinine 0.78 mg/dL (0.55-1.02) 01/06/25 05:11 Est GFR (MDRD) Af Amer > 60 (>60) 01/06/25 05:11 Est GFR (MDRD) Non-Af > 60 (>60) 01/06/25 05:11 Glucose 114 mg/dL (65-99) H 01/06/25 05:11 Calcium 8.4 mg/dL (8.5-10.1) L 01/06/25 05:11 Corrected Calcium TNP 01/06/25 05:11 Magnesium 2.4 mg/dL (2.0-2.9) 01/06/25 05:11 Total Bilirubin 0.50 mg/dL (0.2-1.0) 01/06/25 05:11 AST 26 Units/L (15-37) 01/06/25 05:11 ALT 39 Units/L (12-78) 01/06/25 05:11 Alkaline Phosphatase 61 Units/L (46-116) 01/06/25 05:11 Total Protein 7.9 g/dL (6.4-8.2) 01/06/25 05:11 Albumin 3.4 g/dL (3.4-5.0) 01/06/25 05:11 Globulin 4.5 g/dL (2.5-4.5) 01/06/25 05:11 Albumin/Globulin Ratio 0.8 Ratio (1.1-2.1) L 01/06/25 05:11 Amylase 65 Units/L (25-115) 01/06/25 05:11 Lipase 44 Units/L (16-77) 01/03/25 21:25 Specimen Type Clean catch urine 01/03/25 20:52 Urine Color Dark yellow (YELLOW) 01/03/25 20:52 Urine Appearance Clear (CLEAR) 01/03/25 20:52 Urine pH 6.0 (5.0 - 8.0) 01/03/25 20:52 Ur Specific [place] 1.020 (1.000-1.030) 01/03/25 20:52 Urine Protein 2+ (NEGATIVE) 01/03/25 20:52 Urine Glucose (UA) Negative (NEGATIVE) 01/03/25 20:52 Urine Ketones 1+ (NEGATIVE) 01/03/25 20:52 Urine Blood 1+ (NEGATIVE) 01/03/25 20:52 Urine Nitrite Negative (NEGATIVE) 01/03/25 20:52 Urine Bilirubin Negative (NEGATIVE) 01/03/25 20:52 Urine Urobilinogen Normal (NORMAL) 01/03/25 20:52 Ur Leukocyte Esterase Negative (NEGATIVE) 01/03/25 20:52 Urine RBC 0-2 /HPF (0-3) 01/03/25 20:52 Urine WBC 0-2 /HPF (0-5) 01/03/25 20:52 Ur Squamous Epith Cells Moderate /HPF (NEGATIVE) 01/03/25 20:52 Urine Bacteria Trace /HPF (NEGATIVE) 01/03/25 20:52 Urine Mucus Many /HPF (NEGATIVE) 01/03/25 20:52 Ur Culture Indicated? No/not indicated 01/03/25 20:52 Assessment and Plan 1: acute pancreatitis . hypokalemia.. To start on low-fat diet possible discharge in the morning. 2: same plan
[2025-01-06 12:46] VITALS: BMI 33.6
[2025-01-06] MEDS: COLACE CAP 100 MG PO SCH (22:00)
[2025-01-07] MEDS: PHENERGAN INJ 25 MG IM PRN (04:20)
[2025-01-07 06:18] LABS: BASOPHILS % (AUTO) 0.4 % (0.2-1.0); EOSINOPHILS # (AUTO) 0.2 x10^3/uL (0.0-0.2); EOSINOPHILS % (AUTO) 3.9 % (0.9-2.9); HEMATOCRIT 40.6 % (36.0-47.0); HEMOGLOBIN 13.9 g/dL (12.0-16.0); LYMPHOCYTES % (AUTO) 17.6 % (21.0-51.0); MEAN CORPUSCULAR HEMOGLOBIN 36.5 pg (27.0-34.0); MEAN CORPUSCULAR HGB CONC 34.4 g/dL (33.0-35.0); MEAN CORPUSCULAR VOLUME 106.1 fL (80.0-100.0); MEAN PLATELET VOLUME 8.4 fL (7.4-11.0); MONOCYTES # (AUTO) 0.4 x10^3/uL (0.3-0.8); MONOCYTES % (AUTO) 6.2 % (0.0-13.0); NEUTROPHILS # (AUTO) 4.3 x10^3/uL (2.2-4.8); NEUTROPHILS % (AUTO) 71.9 % (42.0-75.0); PLATELET COUNT 225 X10^3/uL (150.0-450.0); RED BLOOD COUNT 3.83 X10^6/uL (3.5-5.4); WHITE BLOOD COUNT 5.9 X10^3/uL (3.6-10.0)
[2025-01-07 06:34] LABS: ALANINE AMINOTRANSFERASE 42 Units/L (12-78); ALBUMIN 3.8 g/dL (3.4-5.0); ALKALINE PHOSPHATASE 61 Units/L (46-116); AMYLASE 78 Units/L (25-115); ASPARTATE AMINO TRANSFERASE 34 Units/L (15-37); BLOOD UREA NITROGEN 3 mg/dL (7-18); CALCIUM 8.5 mg/dL (8.5-10.1); CARBON DIOXIDE 28.4 mmol/L (21-32); CHLORIDE 106 mmol/L (98-107); CREATININE 0.67 mg/dL (0.55-1.02); GLUCOSE 110 mg/dL (65-99); POTASSIUM 3.6 mmol/L (3.5-5.1); SODIUM 144 mmol/L (136-145); TOTAL PROTEIN 8.6 g/dL (6.4-8.2); eGFR NON BLACK RACES > 60 (>60)
[2025-01-07 06:47] LABS: PLATELET MORPHOLOGY COMMENT NORMAL (NORMAL)
[2025-01-07 07:43] VITALS: RESP 20
[2025-01-07] MEDS: PROTONIX INJ 40 MG VIAL IVP SCH (09:48)
[2025-01-07] MEDS: REGLAN INJ 10 MG VIAL IVP PRN (09:48)
[2025-01-07] MEDS: CONSULT PHARMACY - POTASSIUM & MAGNESIUM XX SCH (11:30)
[2025-01-07 11:40] VITALS: BP 136/78; PULSE 56; TEMP 97.8; O2SAT 100
== END 2025-01-07 13:40 | disposition home or self-care (01) | DRG 439 ==
LOC: ER 19:37 → MED/SURG 01-04 00:01
PROVIDERS: ADMIT Surgery; ATTEND Surgery
DX: K81.0 Acute cholecystitis; K86.1 Other chronic pancreatitis; R73.09 Other abnormal glucose; R10.84 Generalized abdominal pain; K85.80 Other acute pancreatitis without necrosis or infection; E80.6 Other disorders of bilirubin metabolism; E83.42 Hypomagnesemia; E87.6 Hypokalemia; Z87.11 Personal history of peptic ulcer disease; I10 Essential (primary) hypertension; R19.7 Diarrhea, unspecified; E83.51 Hypocalcemia; R11.2 Nausea with vomiting, unspecified; K81.1 Chronic cholecystitis